=== PATIENT | female | born 1970 | race Caucasian/White ===

== ENCOUNTER 2017-07-10 07:56 | Inpatient (IN) | payer OTHER ==
[2017-06-21 09:56] VITALS: BMI 36.0
--- NOTE | 2017-06-21 10:32 | PAT Medication Instructions ---
Service Date Jun 21, 2017. Current Home Medication List Cyclobenzaprine Hcl (Flexeril), 1 TAB PO TID PRN for Muscle Spasms Ergocalciferol (Vitamin D 82884 Unit), 1 CAP PO 2XWK Escitalopram Oxalate (Lexapro), 5 MG PO QAM Folic Acid (Folvite), 1 TAB PO QAM Glimepiride (Glimepiride), 1 TAB PO DAILY PRN for blood sugar Lactulose (Chronulac), 2 TBS PO QID Metformin Hcl (Glucophage), 1,000 MG PO BID Nadolol (Corgard), 20 MG PO QAM Naproxen (Aleve), 440 MG PO QD PRN for Pain or Fever Pantoprazole (Protonix), 20 MG PO DAILY PRN for acid reflux Rifaximin (Xifaxan), 1 TAB PO BID Spironolactone (Aldactone), 100 MG PO BID Trazodone Hcl (Trazodone), 75 MG PO HS PRN for Sleep Medication Instructions For Your Scheduled Surgery - Check with surgeon for instructions: Naproxen (Aleve), 440 MG PO QD PRN for Pain or Fever - Hold the following medications the morning of surgery: Cyclobenzaprine Hcl (Flexeril), 1 TAB PO TID PRN for Muscle Spasms Ergocalciferol (Vitamin D 36029 Unit), 1 CAP PO 2XWK Folic Acid (Folvite), 1 TAB PO QAM Glimepiride (Glimepiride), 1 TAB PO DAILY PRN for blood sugar Metformin Hcl (Glucophage), 1,000 MG PO BID Spironolactone (Aldactone), 100 MG PO BID - Take the following medications the morning of surgery with a sip of water: Pantoprazole (Protonix), 20 MG PO DAILY PRN for acid reflux (if needed) Lactulose (Chronulac), 2 TBS PO QID Rifaximin (Xifaxan), 1 TAB PO BID Nadolol (Corgard), 20 MG PO QAM Escitalopram Oxalate (Lexapro), 5 MG PO QAM - Take the following medications as scheduled the night before surgery: Trazodone Hcl (Trazodone), 75 MG PO HS PRN for Sleep (if needed) Spironolactone (Aldactone), 100 MG PO BID Pantoprazole (Protonix), 20 MG PO DAILY PRN for acid reflux (if needed) Lactulose (Chronulac), 2 TBS PO QID Rifaximin (Xifaxan), 1 TAB PO BID Glimepiride (Glimepiride), 1 TAB PO DAILY PRN for blood sugar (if needed) Cyclobenzaprine Hcl (Flexeril), 1 TAB PO TID PRN for Muscle Spasms (if needed) If you have any questions please call us at [phone] or [phone] or [phone]
--- NOTE | 2017-06-21 11:27 | DIAGNOSTIC IMAGING REPORT ---
CHEST 2 VIEWS ROUTINE CLINICAL HISTORY: PAT preoperative evaluation COMPARISON STUDY: No previous studies for comparison. FINDINGS: The bones soft tissues and hemidiaphragms are normal. The cardiomediastinal silhouette is normal. The lungs are clear. The pulmonary vasculature is normal. IMPRESSION: Negative chest. The above report was generated using voice recognition software. It may contain grammatical, syntax or spelling errors. Electronically signed by: Terrell Spencer M.D. 06/21/2017 11:25 AM Dictated Date/Time: 06/21/2017 11:25 AM
[2017-06-21 12:27] LABS: BASO % 0.8 %; BASO ABS # 0.05 K/uL (0-0.2); EOS % 3.2 %; HEMATOCRIT 41.7 % (37-47); HEMOGLOBIN 14.8 g/dL (12.0-16.0); IG# 0.01 K/uL (0.00-0.02); LYMPH % 44.4 %; LYMPH ABS # 2.76 K/uL (1.2-3.4); MEAN CELL VOLUME 99.8 fL (80-100); MEAN CORPUSCULAR HEMOGLOBIN 35.4 pg (25-34); MEAN CORPUSCULAR HGB CONC 35.5 g/dl (32-36); MEAN PLATELET VOLUME 10.3 fL (7.4-10.4); MONO % 10.3 %; MONO ABS # 0.64 K/uL (0.11-0.59); NEUT % 41.1 %; NEUT ABS # 2.56 K/uL (1.4-6.5); PLATELET COUNT 144 K/uL (130-400); RED CELL DISTRIBUTION WIDTH CV 13.5 % (11.5-14.5); RED CELL DISTRIBUTION WIDTH SD 48.9 fL (36.4-46.3); WHITE BLOOD COUNT 6.22 K/uL (4.8-10.8)
[2017-06-21 12:37] LABS: CALCIUM 9.6 mg/dl (8.5-10.1); CREATININE 0.47 mg/dl (0.60-1.20); POTASSIUM 3.9 mmol/L (3.5-5.1)
[2017-06-21 12:38] LABS: INR 1.2 (0.9-1.1); PTT PATIENT 27.5 SECONDS (21.0-31.0)
[2017-06-21 12:54] LABS: ALBUMIN 3.6 gm/dl (3.4-5.0); TOTAL PROTEIN 7.2 gm/dl (6.4-8.2)
[2017-06-21 13:04] LABS: HEMOGLOBIN A1C 8.4 % (4.5-5.6)
[2017-07-10] VITALS (10 sets, daily range): BP systolic 114–160; BP diastolic 74–97; PULSE 68–89; TEMP 36.5–36.9; O2SAT 94–97; BMI 37.0
[~2017-07-10] VITALS: Ht 167.6 cm; Wt 104.9 kg
[~2017-07-10 07:56] MED LIST: CYCL10TA6 PO; ERGO500037 PO; ESCI1TAB6 PO; FOLI1TAB8 PO; GLIM2TAB2 PO; LACT10SO17 PO; LACTATED RINGER'S 1000ML 1,000 ML IV SCH; METF-384 PO; NADO20TA PO; NAPR1TAB9 PO; PRT/20 PO; RIFA550T2 PO; SPIR50TA2 PO; TRAZ50TA35 PO
[2017-07-10] MEDS ORDERED: ATROPINE SULFATE 0.1 MG/ML 5ML SYR IV PRN (08:30)
[2017-07-10] MEDS ORDERED: ONDANSETRON INJ 2 MG/ML 2 ML VIAL IV PRN ×2 (08:30→11:30)
[2017-07-10] MEDS ORDERED: EpHEDrine SULFATE INJ 50 MG/ML AMP IV PRN (08:30)
[2017-07-10] MEDS ORDERED: HYDROmorphone INJ 1 MG/ML SYR IV PRN (08:30)
[2017-07-10] MEDS: CEFAZOLIN 2000MG IV PUSH 15 ML IV SCH ×2 (08:45→09:39)
[2017-07-10] MEDS ORDERED: FENTANYL CITRATE INJ 50 MCG/1 ML 2 ML VIAL ONE ×2 (08:59→10:02)
[2017-07-10] MEDS ORDERED: MIDAZOLAM HCL 1 MG/ML 2ML VIAL ONE (08:59)
--- NOTE | 2017-07-10 09:08 | History & Physical Bridge Note ---
H&P Re-Evaluation Bridge Note: I have examined the patient, reviewed the History & Physical and in the interval since the performance of the History & Physical I have noted the following changes of clinical significance: No changes noted
--- NOTE | 2017-07-10 09:09 | History and Physical ---
History & Physical Date Jul 10, 2017. Chief Complaint Back and bilateral leg pain History of Present Illness The patient is a 46 year old female with complaints of back and bilateral leg pain Additional History Hepatic Disease: No Endocrine Disorder: No Kidney Disease: No Hypertension: No Heart Disease: No Bleeding Tendencies: No Infectious Diseases: No Allergies Coded Allergies: No Known Allergies (Unverified , 06/21/17) Home Medications Scheduled Ergocalciferol (Vitamin D 20870 Unit), 1 CAP PO 2XWK Escitalopram Oxalate (Lexapro), 5 MG PO QAM Folic Acid (Folvite), 1 TAB PO QAM Lactulose (Chronulac), 2 TBS PO QID Metformin Hcl (Glucophage), 1,000 MG PO BID Nadolol (Corgard), 20 MG PO QAM Rifaximin (Xifaxan), 1 TAB PO BID Spironolactone (Aldactone), 100 MG PO BID Scheduled PRN Cyclobenzaprine Hcl (Flexeril), 1 TAB PO TID PRN for Muscle Spasms Glimepiride (Glimepiride), 1 TAB PO DAILY PRN for blood sugar Naproxen (Aleve), 440 MG PO QD PRN for Pain or Fever Pantoprazole (Protonix), 20 MG PO DAILY PRN for acid reflux Trazodone Hcl (Trazodone), 75 MG PO HS PRN for Sleep Physical Examination Skin: warm/dry, no rash Eyes: normal inspection, EOMI, sclerae normal ENT: normal ENT inspection, pharynx normal Head: normocephalic, atraumatic Neck: supple, no adenopathy, trachea midline Respiratory/Chest: lungs clear, normal breath sounds, no respiratory distress Cardiovascular: regular rate, rhythm, no edema, no murmur Abdomen / GI: normal bowel sounds, non tender Back: normal inspection Extremities: normal inspection, normal range of motion Neurologic/Psych: no motor/sensory deficits, alert, normal reflexes, oriented x 3 Diagnosis Lumbar spinal stenosis Plan of Treatment Possible L4-5, L5-S1 lumbar decompression and fusion
[2017-07-10] MEDS ORDERED: BUPIVACAINE/EPINEPHRINE 0.5% MPF 1:200,000 30 ML VIAL ONE (09:14)
[2017-07-10] MEDS ORDERED: BACITRACIN 50000 UNIT VIAL ONE (09:14)
[2017-07-10] MEDS ORDERED: HYDROmorphone INJ 2 MG/ML SYR/VIAL ONE ×2 (10:02→11:25)
[2017-07-10] MEDS ORDERED: PROPOFOL IV EMULSION 10 MG/ML 20 ML VIAL IV ONE (10:56)
[2017-07-10] MEDS ORDERED: PHENYLEPHRINE 100MCG/ML 5ML SYR ONE ×2 (10:56→11:26)
[2017-07-10] MEDS ORDERED: LIDOCAINE HCL 2% 2 ML VIAL (20MG/ML) ONE (10:56)
[2017-07-10] MEDS ORDERED: ONDANSETRON INJ 2 MG/ML 2 ML VIAL ONE ×2 (10:56→11:26)
[2017-07-10] MEDS ORDERED: DEXAMETHASONE SOD INJ 4 MG/ML VIAL ONE (10:56)
[2017-07-10] MEDS ORDERED: FLOSEAL HEMOSTATIC MATRIX 10ML TOP ONE (11:16)
[2017-07-10] MEDS ORDERED: SODIUM CHLORIDE 0.9% 1000ML 1,000 ML IV SCH (11:19)
--- NOTE | 2017-07-10 11:19 | [facility] Operative Report ---
Operative Report Operative Date Jul 10, 2017. Pre-Operative Diagnosis Lumbar Spinal Stenosis Post-Operative Diagnosis Same Procedure(s) Performed 1. Lumbar decompression medial facetectomies foraminotomies L4-5 L5-S1. #2 posterior spinal fusion L5-S1. #3 placed posterior instrumentation L5-S1. #4 interbody fusion L5-S1. #5 placement peek cage 11 x 22 mm at L5-S1. #6 placement of locally harvested morselized s allograft in the posterior lateral gutters. #7 placement InFUSE collagen sponge combined master graft in the posterior lateral gutters and ostially up in the interbody space. Surgeon Dr. Tierney Community Affairs Manager Surgeon(s) Naye Mckeon PA-C Estimated Blood Loss 250 Findings Spinal stenosis Specimens none per surgeon Description of Procedure Patient was met with preoperatively case discussed all questions addressed. After informed consent obtained patient was taken to the operative suite underwent intubation and placed in a prone position on the Erick table on top of the Ludwig frame. All bony prominences were well-padded eyes inspected to ensure no external pressure placed upon the. This point the lumbar spine was prepped and draped in normal sterile fashion. Sharp dissection with the assistance of Bovie cautery was performed down to and exposing the lamina and transverse processes of L5 and sacral ala bilaterally. From caudocephalad fashion complete laminectomy of L5 partial laminectomy of L4 was performed addressing significant lateral recess stenosis and foraminal disease. Pedicle screws are then placed in L5 and S1 levels bilaterally with the assistance of fluoroscopy and the appropriately sized shade placed. Through a transforaminal approach on the left can be discectomy at L5-S1 was performed endplates created to subcortical bleeding bone and an 11 x 22 mm peek cage filled with ostial and bone graft tapped in position. Rods were then locked in final position bilaterally. The transverse processes of L5 and the sacral ala burred to subcortical bleeding bone. Infuse collagen sponge master graft and locally harvested morselized Was placed in the posterior gutters. 15 round BUSTER drain inserted. Incision was then closed with 1 Vicryl fascia 2-0 Vicryl subcutaneous and 4-0 Monocryl for final skin closure Steri-Strips sterile dressings placed. Patient will continue PACU stable condition. Please note Naye Man was present throughout the entire procedure involved in patient positioning complex portions of the surgery and fashion closure. I attest to the content of the Intraoperative Record and any orders documented therein. Any exceptions are noted below.
[2017-07-10] MEDS ORDERED: NEOSTIGMINE METHYLSULFATE 1 MG/ML 10ML VIAL ONE (11:26)
[2017-07-10] MEDS ORDERED: GLYCOPYRROLATE INJ 0.2 MG/ML VIAL ONE (11:26)
--- NOTE | 2017-07-10 11:26 | DIAGNOSTIC IMAGING REPORT ---
LUMBAR SPINE 2 OR 3 VIEW CLINICAL HISTORY: L5-S1 decompression. COMPARISON STUDY: No previous studies for comparison. Fluoroscopy time: 17.9 seconds. FINDINGS: 2 fluoroscopic images demonstrate an L5-S1 discectomy with interbody spacer placement. There is a posterior decompression with bilateral pedicle screws at the L5 and S1 levels. There are interconnecting rods. Hardware is intact. IMPRESSION: Fluoroscopic images demonstrating an L5-S1 discectomy and bilateral pedicle screw fusion. Electronically signed by: Keny Kuhn M.D. 07/10/2017 11:25 AM Dictated Date/Time: 07/10/2017 11:24 AM
[2017-07-10] MEDS ORDERED: CYCLOBENZAPRINE HCL 10 MG TAB PO PRN (11:30)
[2017-07-10] MEDS ORDERED: GLIMEPIRIDE 2 MG TAB PO PRN (11:30)
[2017-07-10] MEDS ORDERED: SOD PHOSPHATE/SOD BIPHOSPHATE ENEMA 132 ML BTL PR PRN (11:30)
[2017-07-10] MEDS ORDERED: ALUMINUM/MAGNESIUM SUSP 30 ML UDC PO PRN (11:30)
[2017-07-10] MEDS ORDERED: LORAZEPAM INJ 0.5 MG in SYRINGE 0 ML IV PRN (11:30)
[2017-07-10] MEDS ORDERED: LORAZEPAM 0.5 MG TAB PO PRN (11:30)
[2017-07-10] MEDS ORDERED: BISACODYL 10 MG SUPP PR PRN (11:30)
[2017-07-10] MEDS ORDERED: PROMETHAZINE HCL INJ 12.5 MG in SODIUM CHLORIDE 0.9% 50ML 50 ML IV PRN (11:30)
[2017-07-10] MEDS ORDERED: TRAZODONE HCL 50 MG TAB PO PRN (11:30)
[2017-07-10] MEDS ORDERED: ACETAMINOPHEN IV 100 ML IV PRN (11:30)
[2017-07-10] MEDS ORDERED: DO NOT ADMINISTER FLU VACCINE PRN (11:30)
[2017-07-10] MEDS ORDERED: NALOXONE HCL 0.4 MG/1 ML VIAL/CARP IV PRN ×2 (11:30)
[2017-07-10] MEDS ORDERED: KETOROLAC TROMETHAMINE 30 MG/ML VIAL ONE (11:30)
[2017-07-10] MEDS ORDERED: PANTOprazole SOD 40 MG TAB PO PRN (11:30)
[2017-07-10] MEDS ORDERED: DC PCA PRN (11:30)
[2017-07-10] MEDS ORDERED: hydrOXYzine HCL 25 MG TAB PO PRN (11:30)
[2017-07-10] MEDS ORDERED: MAGNESIUM HYDROXIDE SUSP 30 ML UDC PO PRN (11:30)
[2017-07-10] MEDS ORDERED: DO NOT ADMINISTER PNEUMOCOCCAL VACCINE PRN (11:30)
[2017-07-10] MEDS ORDERED: FAMOTIDINE 20 MG TAB PO PRN (11:30)
[2017-07-10] MEDS ORDERED: ACETAMINOPHEN 500 MG TAB PO PRN (11:30)
[2017-07-10] MEDS ORDERED: METOCLOPRAMIDE HCL INJ 5 MG/ML 2 ML VIAL IV PRN (11:30)
[2017-07-10] MEDS ORDERED: PHARMACY GLYCEMIC MGMT CONSULT PRN (11:46)
[2017-07-10] MEDS ORDERED: GLUCOSE 10 TABS/TUBE PO PRN (12:00)
[2017-07-10] MEDS ORDERED: INSULIN GLARGINE SOLOSTAR 100 UNITS/ML 3 ML PEN SC SCH ×2 (12:00→21:00)
[2017-07-10] MEDS ORDERED: GLUCOSE 40% GEL 15 GM TUBE PO PRN (12:00)
[2017-07-10] MEDS ORDERED: GLUCAGON FOR INJ 1 MG VIAL SQ PRN (12:00)
[2017-07-10] MEDS ORDERED: DEXTROSE 50% 50 ML SYR IV PRN (12:00)
[2017-07-10] MEDS: FENTANYL CITRATE INJ 50 MCG/1 ML 2 ML VIAL IV PRN ×4 (12:02→12:21)
[2017-07-10] MEDS ORDERED: HYDROmorphone HCL 0.5MG/ML 50 ML CASSETTE ONE (12:07)
--- NOTE | 2017-07-10 12:44 | Anesthesiology Progress Note ---
Anesthesia Post Op Note Date & Time Jul 10, 2017 at 12:44 Vital Signs Pain Intensity: 5 Vital Signs Past 12 Hours Date Time Temp Pulse Resp B/P (MAP) Pulse Ox O2 Delivery O2 Flow Rate FiO2 07/10/17 12:40 36.6 67 16 134/98 92 Nasal Cannula 4 07/10/17 12:38 85 12 92 07/10/17 12:38 71 12 07/10/17 12:37 134/98 07/10/17 12:33 73 11 07/10/17 12:33 80 11 92 07/10/17 12:31 140/78 07/10/17 12:28 66 19 07/10/17 12:28 65 19 91 07/10/17 12:26 114/88 07/10/17 12:23 68 12 07/10/17 12:23 67 12 92 07/10/17 12:21 140/94 07/10/17 12:18 69 12 95 07/10/17 12:18 69 14 07/10/17 12:17 134/80 07/10/17 12:13 69 11 07/10/17 12:13 70 11 98 07/10/17 12:11 146/104 07/10/17 12:08 76 13 07/10/17 12:08 76 13 98 07/10/17 12:06 141/89 07/10/17 12:03 81 12 98 07/10/17 12:03 81 12 07/10/17 12:01 146/88 07/10/17 11:58 88 18 97 07/10/17 11:58 88 18 07/10/17 11:57 151/105 07/10/17 11:53 86 19 07/10/17 11:53 86 19 95 07/10/17 11:51 136/88 07/10/17 11:48 88 15 07/10/17 11:48 87 15 95 07/10/17 11:46 148/83 07/10/17 11:45 36.6 84 16 148/83 94 Oxymask 10 07/10/17 08:36 36.9 68 20 160/97 96 Room Air Notes Mental Status: alert / awake / arousable, participated in evaluation Pt Amnestic to Procedure: Yes Nausea / Vomiting: adequately controlled Pain: adequately controlled Airway Patency, RR, SpO2: stable & adequate BP & HR: stable & adequate Hydration State: stable & adequate Anesthetic Complications: no major complications apparent
[2017-07-10] MEDS ORDERED: INSULIN ASPART 100 UNITS/ML 3 ML PEN SC ONE (13:30)
[2017-07-10] MEDS: SODIUM CHLORIDE 0.9% 1000ML 1,000 ML IV SCH ×2 (13:39→21:06)
--- NOTE | 2017-07-10 14:05 | Pharmacy Progress Note ---
Glycemic Control Intl Consult Date of Service Jul 10, 2017. Scope Glycemic Pharmacist consulted by Dr Tierney on 07/10/17 for glycemic control and to write orders per [facility] inpatient glycemic control protocol Objective Weight (Kilograms): 104.900 Accuchecks BSG (last 24hrs): Test 07/10/17 12:21 Bedside Glucose 148 mg/dl (70-90) HbA1c Test 06/21/17 10:55 Hemoglobin A1c 8.4 % (4.5-5.6) H Recent Pertinent Medications Outpatient Anti-diabetic Regimen: * glimepiride 2 mg PO daily PRN blood sugars Risk Factors for Insulin Resistance: * Steroids: dexamethasone 12 mg IV x 1 intraoperatively * Recent Surgery: POD 0 for lumbar surgery * Diet: type 2 diabetic diet Assessment & Plan ASSESSMENT: * Ms Oliver is a 46 y/o F with a PMH of hepatic disease and poorly controlled type 2 diabetes (Elements of Diabetes Care Scoring Scale places patient's goal HbA1C between 6.6-7.5%) who presents with lumbar surgery. The patient's blood sugar after surgery was 148 mg/dL. There was no blood sugar prior to surgery. * The patient received only dexamethasone 12 mg intraoperatively. With continuing steroids, it is reasonable to give full 24 hour weight-based stress of 3 Lantus. However, the patient only received a one time dose of 12 mg of dexamethasone. Therefore, will give between full 24 hours weigh-based stress of 2 and 3. Additional dose is available this evening. * Will start with weight-based stress of 3 Novolog secondary to large dose of steroids used. * Pt is maintained on oral antidiabetic agents as an outpatient * Oral agents are not recommended for inpatient use d/t drug interactions, changing PO intake, and difficulty titrating for acute hyper/hypoglycemia. ADA recommends re-initiating outpatient oral agents 1-2 days prior to discharge if/ when appropriate if they were held on admission. * Will hold oral agents for admission and utilize SQ basal bolus insulin regimen which is the recommended regimen for inpatient glycemic control. * Will initiate weight based insulin dosing for insulin bull patient and titrate based on BSG trends. PLAN FOR INPATIENT GLYCEMIC CONTROL: * Holding outpatient oral diabetes medications * Basal insulin with LANTUS 45 units SQ x 1 then Lantus 0-15 units SQ this evening based upon blood sugars * Correctional Insulin with NOVOLOG per scale ACHS or Q6hrs while NPO * Goal Range: Low 110 mg/dL - High 140 mg/dL * Correction Factor: 15 mg/dL/unit * Nutritional / Prandial insulin per carb ratio of 1 unit per 5 grams CHO consumed * Please note that the plan above was derived based on current level of insulin resistance and hospital stress. These recommendations are appropriate for inpatient admission only. Plan of care upon discharge will need to be reassessed to avoid potential outpatient hypo/hyperglycemia. Thank you.
[2017-07-10] MEDS ORDERED: RXC5 PO (14:15)
--- NOTE | 2017-07-10 14:16 | Discharge Instructions ---
Discharge Instructions Date of Service Jul 10, 2017. Admission Reason for Admission: Spinal Stenosis Discharge Discharge Diagnosis / Problem: lumbar stenosis Discharge Goals Goal(s): Improve function Activity Recommendations Activity Limitations: per Instructions/Follow-up section . Instructions / Follow-Up Instructions / Follow-Up ACTIVITY RECOMMENDATIONS: SELF CARE INSTRUCTIONS AFTER THORACIC/LUMBAR FUSIONS 1. You may walk to your tolerance. It is good exercise for your legs and back. Expect some back and intermittent leg aches and pains. 2. You may perform "counter-top" level activities (make a sandwich, evon with a project, etc.). 3. No bending or lifting of more than 10 pounds or back twisting of any nature (roll like a log when turning in bed). 4. You may ride in a car for 20-30 minutes at a time. No driving until after your first visit with your doctor. 5. Frequent changes of position and restricting sitting to 30 minutes at a time will help limit the amount of back spasms and stiffness you may experience. 6. You may discontinue the use of ambulatory aids (cane, crutches, etc.) once your strength and confidence allow. 7. You may solar system installer the shower and let water strike your incision when you arrive home at least once daily. Do not take a tub bath, sit in a hot tub or go into a swimming pool until after your first recheck in the office. SPECIAL CARE INSTRUCTIONS: VERY IMPORTANT TO READ AND REVIEW A. Your surgical incision has been closed with a cosmetic suture under the skin that will dissolve in about 6 weeks. In 14 days, you can use a pair of clean scissors and cut the suture that is left outside of the skin at the ends of your incision. 1. The small skin tapes can be removed 7 days after surgery if they have not fallen off by that point. 2. You may keep the wound open to air as much as possible to promote healing after post-op day number 5 unless told otherwise by your doctor. 3. If you think the wound looks like it is becoming infected (redness or worsening drainage) and/or you are experiencing fever, chill or worsening back pain and muscle spasms, contact the office so that we may evaluate you as soon as possible. B. Complications are uncommon, but please contact us if you have any signs or symptoms of: 1. wound infection (fever higher than 102.5 degrees F, redness, separation of wound, drainage, or increasing pain from the incision) 2. blood clots in legs (pain, swelling, redness and warmth in legs) 3. urinary tract infection (fever higher than 102.5 degrees F, burning upon urination or increased frequency of urination) 4. nerve problems (inability to walk on your toes or heels, numbness, loss of bowel or bladder control) 5. any other symptoms that concern you C. Please call the office at if you have any concerns or questions about your operation or recovery. D. No smoking! Smoking drastically decreases the chance of a solid fusion. E. Do not take any anti-inflammatory medications (Indocin, Advil, Motrin, Aspirin, Naprosyn, etc.) as these may inhibit the chance of a solid fusion. Tylenol is okay to take for pain. MANAGING PAIN AFTER SPINAL SURGERY 1. Narcotic medication is intended for short-term use and will be provided for surgical pain. Surgical pain usually lasts for a period of 4-6 weeks. Narcotic medication includes Percocet, Vicodin, Darvocet, Tylenol #3 or Lortab. 2. Longer-term pain is more appropriately treated with non-narcotic medication such as Tylenol ES. 3. Muscle spasm is not appropriately treated with narcotics. Muscle relaxers such as Soma, Flexeril or Skelaxin can be used along with Tylenol ES. 4. Remember that we all live with some "aches and pains". This is not unusual or uncommon after an injury or as we get older. a. Back pain is expected and may include muscle spasms for 4 to 6 weeks after surgery. The pain should gradually improve. If the pain worsens for no apparent reason, please contact the office. b. Intermittent leg pain may also be experienced and should not be concerned about unless it worsens for no apparent reason. If so, please contact the office. 5. We will provide appropriate medication within the normal guidelines of their prescribed use. We will also be very cautious and aware of potential abuse and extended duration of patients' medication needs. a. Pain medications are for your comfort and to assist with sleep and rest so that the tissue can heal. They are not provided in order to return to normal activity and should not be used through the day. To do so or worsening pain at night can result from ongoing tissue damage and development of tolerance to the prescribed medicine. 6. Please allow 2-3 days to process refills. Prescriptions will not be mailed but must be picked up at the office. FOLLOW UP VISIT: Keep your scheduled follow-up appointment. Any questions, please call the office at . Current Hospital Diet Patient's current hospital diet: Diabetes Type 2 Diet Discharge Diet Recommended Diet: Regular Diet Procedures Procedures Performed: 1. Lumbar decompression medial facetectomies foraminotomies L4-5 L5-S1. #2 posterior spinal fusion L5-S1. #3 placed posterior instrumentation L5-S1. #4 interbody fusion L5-S1. #5 placement peek cage 11 x 22 mm at L5-S1. #6 placement of locally harvested morselized s allograft in the posterior lateral gutters. #7 placement InFUSE collagen sponge combined master graft in the posterior lateral gutters and ostially up in the interbody space. Pending Studies Studies pending at discharge: no Laboratory Results Hemoglobin A1c Test 06/21/17 10:55 Range/Units Estimated Average Glucose 194 mg/dl Hemoglobin A1c 8.4 H 4.5-5.6 % Medical Emergencies . Who to Call and When: Medical Emergencies: If at any time you feel your situation is an emergency, please call 911 immediately. . Non-Emergent Contact Non-Emergency issues call your: Primary Care Provider . "Provider Documentation" section prepared by Chris Tierney. .
[2017-07-10] MEDS: HYDROmorphone HCL 0.5MG/ML 50 ML CASSETTE IV PRN ×2 (15:03→22:52)
[2017-07-10] MEDS: SPIRONOLACTONE 100 MG TAB PO SCH (17:24)
[2017-07-10] MEDS: LACTULOSE SYRUP 10 GM/15 ML BTL 473 ML PO SCH ×2 (17:24→20:58)
[2017-07-10] MEDS: INSULIN ASPART 100 UNITS/ML 3 ML PEN SC SCH ×2 (18:10→21:11)
[2017-07-10] MEDS: CEFAZOLIN IV 2,000 MG in SYRINGE 0 ML IV SCH (18:14)
[2017-07-10] MEDS: RIFAXIMIN TAB 550 MG TAB PO SCH (20:58)
[2017-07-10] MEDS: DOCUSATE SODIUM/SENNA 50/8.6MG TAB PO SCH (20:58)
[2017-07-11] VITALS (7 sets, daily range): BP systolic 111–153; BP diastolic 67–83; PULSE 69–82; TEMP 36.8–37; O2SAT 90–95; Ht 167.6 cm; Wt 104.9 kg
[2017-07-11] MEDS: CEFAZOLIN IV 2,000 MG in SYRINGE 0 ML IV SCH (02:29)
[2017-07-11] MEDS: SODIUM CHLORIDE 0.9% 1000ML 1,000 ML IV SCH (02:29)
[2017-07-11] MEDS ORDERED: COUGH DROP (SUGAR FREE) LOZ 24 LOZ/1 BOX LOZ ONE (02:31)
[2017-07-11] MEDS ORDERED: NURSING VERBAL MED ORDER ONE (05:15)
[2017-07-11] MEDS ORDERED: HYDROmorphone INJ 0.5 MG/0.5 ML SYR IV PRN (06:00)
[2017-07-11 06:06] LABS: HEMATOCRIT 34.4 % (37-47); HEMOGLOBIN 12.1 g/dL (12.0-16.0); IG# 0.02 K/uL (0.00-0.02); LYMPH ABS # 1.12 K/uL (1.2-3.4); MEAN CELL VOLUME 100.3 fL (80-100); MEAN CORPUSCULAR HEMOGLOBIN 35.3 pg (25-34); MEAN CORPUSCULAR HGB CONC 35.2 g/dl (32-36); MEAN PLATELET VOLUME 10.2 fL (7.4-10.4); MONO ABS # 0.78 K/uL (0.11-0.59); NEUT % 82.8 %; NEUT ABS # 9.27 K/uL (1.4-6.5); PLATELET COUNT 158 K/uL (130-400); RED CELL DISTRIBUTION WIDTH CV 13.6 % (11.5-14.5); RED CELL DISTRIBUTION WIDTH SD 48.9 fL (36.4-46.3); WHITE BLOOD COUNT 11.19 K/uL (4.8-10.8)
--- NOTE | 2017-07-11 06:46 | Clinical Documentation Query ---
CLINICAL DOCUMENTATION QUERY 46-y/o female who has undergone L5-S1 fusion. H&P states no past medical history however patient's home medications tell a different story. In your clinical opinion is this patient being managed for: ( x ) Type 2 DM ( x ) HTN ( ) Anxiety ( ) Depression ( ) Not Agree ( ) Other explanation of clinical findings (Please Explain) ( ) Unable to determine (Please Define) ( ) Need to Discuss The medical record reflects the following clinical findings, treatment, and risk factors. Clinical Indicators: Ergocalciferol (Vitamin D 96515 Unit), 1 CAP PO 2XWK Escitalopram Oxalate (Lexapro), 5 MG PO QAM Folic Acid (Folvite), 1 TAB PO QAM Lactulose (Chronulac), 2 TBS PO QID Metformin Hcl (Glucophage), 1,000 MG PO BID Nadolol (Corgard), 20 MG PO QAM Rifaximin (Xifaxan), 1 TAB PO BID Spironolactone (Aldactone), 100 MG PO BID Treatment: above medication continued while inpatient Risk Factors: Age Please clarify and document your clinical opinion in the progress notes and discharge summary. Terms such as "probable", "suspected", "likely", "questionable", "possible", or "still to be ruled out" are acceptable. IF IN AGREEMENT, YOU MUST DOCUMENT ABOVE DIAGNOSTIC STATEMENT IN DAILY PROGRESS NOTES AND DISCHARGE SUMMARY. This document is not part of the patient's record. Thank You, Kunal Cody, RN [phone]
[2017-07-11 06:56] LABS: CALCIUM 8.3 mg/dl (8.5-10.1); CREATININE 0.71 mg/dl (0.60-1.20); POTASSIUM 5.2 mmol/L (3.5-5.1)
[2017-07-11] MEDS: INSULIN ASPART 100 UNITS/ML 3 ML PEN SC SCH ×4 (08:46→21:00)
[2017-07-11] MEDS: SPIRONOLACTONE 100 MG TAB PO SCH ×2 (08:47→17:02)
[2017-07-11] MEDS: RIFAXIMIN TAB 550 MG TAB PO SCH ×2 (08:47→21:12)
[2017-07-11] MEDS: LACTULOSE SYRUP 10 GM/15 ML BTL 473 ML PO SCH ×4 (08:47→21:13)
[2017-07-11] MEDS: NADOLOL 40 MG TAB PO SCH (08:48)
[2017-07-11] MEDS: ESCITALOPRAM OXALATE 10 MG TAB PO SCH (08:48)
[2017-07-11] MEDS ORDERED: INSULIN GLARGINE SOLOSTAR 100 UNITS/ML 3 ML PEN SC SCH ×3 (09:00→21:00)
[2017-07-11] MEDS: OXYCODONE HCL IR 5 MG TAB (IMMEDIATE RELEASE) PO PRN ×3 (12:19→23:24)
--- NOTE | 2017-07-11 12:19 | Progress Note ---
Progress Note Date of Service Jul 11, 2017. Progress Note Pain is well controlled. She is ambulate in halls without difficulty. Vital signs are stable. BUSTER drain decreasing appropriately. On exam she is sitting in a chair at the bedside is good strength testing appears comfortable. Assessment status post lumbar decompression fusion per plan at this time will continue physical therapy monitor her BUSTER output anticipate possible home tomorrow.
--- NOTE | 2017-07-11 13:48 | Anesthesiology Progress Note ---
Anesthesia Post Op Note Date & Time Jul 11, 2017 at 13:47 Vital Signs Pain Intensity: 7.0 Vital Signs Past 12 Hours Date Time Temp Pulse Resp B/P (MAP) Pulse Ox O2 Delivery O2 Flow Rate FiO2 07/11/17 12:14 36.8 70 16 153/80 (104) 95 Room Air 07/11/17 10:42 95 07/11/17 08:00 90 Room Air 07/11/17 07:08 36.8 80 14 111/77 (88) 90 Room Air 07/11/17 03:10 37.0 82 14 117/67 (84) 93 Nasal Cannula 2.0 Notes Mental Status: alert / awake / arousable, participated in evaluation Pt Amnestic to Procedure: Yes Nausea / Vomiting: adequately controlled Pain: adequately controlled Airway Patency, RR, SpO2: stable & adequate BP & HR: stable & adequate Hydration State: stable & adequate Anesthetic Complications: no major complications apparent
--- NOTE | 2017-07-11 13:53 | Pharmacy Progress Note ---
Pharmacy Glycemic Short Note 2 Date of Service Jul 11, 2017. OUTPATIENT ANTIDIABETIC REGIMEN: * glimepiride 2 mg PO daily PRN blood sugars ASSESSMENT: * Ms Oliver is a 46 y/o F with a PMH of hepatic disease and poorly controlled type 2 diabetes (Elements of Diabetes Care Scoring Scale places patient's goal HbA1C between 6.6-7.5%) who presents with lumbar surgery. The patient received dexamethasone 12 mg intraoperatively. * The patient's blood sugars yesterday were 148 (after surgery)- 229-259 mg/dL. The fasting blood sugar was 290 mg/dL. The patient received 88 units of insulin yesterday with 60 units of basal (more than a full weight-based stress of 3 dose ). For this morning.... gave full weight-based stress of 2 Lantus dose of 35 units. For this evening, will provide scale dose depending on how patient will respond. * For Novolog, weight-based stress of 3 was initially utilized. This appeared ineffective at this point. Tightened carbohydrate ratio slightly to 4. Added an 0200 Accucheck to ensure 24 hour coverage. * Pt is maintained on oral antidiabetic agents as an outpatient * Oral agents are not recommended for inpatient use d/t drug interactions, changing PO intake, and difficulty titrating for acute hyper/hypoglycemia. ADA recommends re-initiating outpatient oral agents 1-2 days prior to discharge if/ when appropriate if they were held on admission. * Restart metformin tomorrow morning with breakfast PLAN FOR INPATIENT GLYCEMIC CONTROL: * metformin 1000 mg PO BID starting tomorrow morning with breakfast * Basal insulin * Lantus 35 units SQ x 1 then 0-18 units tonight depending on blood sugar * Bolus insulin * NovoLog per scale ACHS or Q6hrs while NPO * Goal Range: Low 110 mg/dL - High 140 mg/dL * Correction Factor: 15 mg/dL/unit * Nutritional / Prandial insulin per carb ratio of 1 unit per 4 grams CHO consumed PLAN FOR DISCHARGE: * The patient's HbA1C is not well controlled based upon current recommendations. Recommend utilizing one of the first line agents according to the ADA Approaches to Glycemic Treatment. These include metformin (may utilize extended release formulation for better GI tolerability and start at 500 mg daily with titration upwards), SGLT-2 inhibitors, and injectable agents like Victoza. * Close follow-up with provider is necessary to ensure proper glycemic control.
[2017-07-11] MEDS ORDERED: INSULIN HUMAN REGULAR IV BOLUS 2.5 UNIT in SYRINGE 0 ML IV SCH (16:00)
[2017-07-11] MEDS: INSULIN REGULAR 250 UNITS in SODIUM CHLORIDE 0.9% 250ML 250 ML IV SCH ×7 (16:12→22:27)
[2017-07-11] MEDS: KETOROLAC TROMETHAMINE 30 MG/ML VIAL IV PRN (17:36)
[2017-07-11] MEDS ORDERED: METFORMIN HCL 500 MG TAB PO SCH (17:45)
[2017-07-11] MEDS: DOCUSATE SODIUM/SENNA 50/8.6MG TAB PO SCH (21:13)
[2017-07-12] MEDS ORDERED: NURSING DECISION MEDICATION ORDER SCH (00:45)
[2017-07-12] MEDS ORDERED: INSULIN ASPART 100 UNITS/ML 3 ML PEN SC SCH (02:00)
[2017-07-12] MEDS: OXYCODONE HCL IR 5 MG TAB (IMMEDIATE RELEASE) PO PRN ×3 (03:58→11:49)
[2017-07-12] MEDS: POLYETHYLENE (MIRALAX) 17 GM PACK PO SCH ×2 (05:39→11:37)
[2017-07-12] MEDS ORDERED: NURSING VERBAL MED ORDER ONE (07:15)
[2017-07-12 07:33] VITALS: BP 130/78; PULSE 68; TEMP 36.6; O2SAT 96
[2017-07-12 08:08] VITALS: O2SAT 96
[2017-07-12] MEDS ORDERED: METFORMIN HCL 500 MG TAB PO SCH (08:30)
[2017-07-12] MEDS: INSULIN ASPART 100 UNITS/ML 3 ML PEN SC SCH ×2 (08:51→12:32)
[2017-07-12] MEDS: SPIRONOLACTONE 100 MG TAB PO SCH (09:00)
[2017-07-12] MEDS ORDERED: INSULIN GLARGINE SOLOSTAR 100 UNITS/ML 3 ML PEN SC SCH ×2 (09:00→21:00)
[2017-07-12] MEDS: LACTULOSE SYRUP 10 GM/15 ML BTL 473 ML PO SCH (09:01)
[2017-07-12] MEDS: NADOLOL 40 MG TAB PO SCH (09:02)
[2017-07-12] MEDS: ESCITALOPRAM OXALATE 10 MG TAB PO SCH (09:03)
[2017-07-12] MEDS: RIFAXIMIN TAB 550 MG TAB PO SCH (09:03)
--- NOTE | 2017-07-12 09:08 | Discharge Summary ---
Orthopedic Discharge Summary Admission Date/Reason Jul 10, 2017 at 09:30 Spinal Stenosis. Discharge Date/Disposition Jul 12, 2017 Home Diagnosis Principal Diagnosis: Lumbar spinal stenosis Admission Physical Exam As per Admitting History & Physical. Hospital Course Patient underwent lumbar decompression fusion tolerated this well was taken to the orthopedic floor. Postop day #1 she was up and amatory progressed nicely through postop day #2. BUSTER drain decreased appropriately. Subsequently she was discharged home. Discharge orders and instructions can be found on the chart for further review. Discharge Instructions Please refer to the electronic Patient Visit Report (Discharge Instructions) for additional information.
[2017-07-12] MEDS: KETOROLAC TROMETHAMINE 30 MG/ML VIAL IV PRN (10:32)
[2017-07-12 11:09] VITALS: BP 130/78; PULSE 68; TEMP 36.6; O2SAT 96
[2017-07-12] MEDS ORDERED: INSULIN HUMAN REGULAR PER UNIT 8 UNITS in SYRINGE 7.92 ML IV SCH (12:30)
--- NOTE | 2017-07-12 13:11 | Pharmacy Progress Note ---
Pharmacy Glycemic Short Note 2 Date of Service Jul 12, 2017. OUTPATIENT ANTIDIABETIC REGIMEN: * glimepiride 2 mg PO daily PRN blood sugars ASSESSMENT: * Ms Oliver is a 46 y/o F with a PMH of hepatic disease and poorly controlled type 2 diabetes (Elements of Diabetes Care Scoring Scale places patient's goal HbA1C between 6.6-7.5%) who presents with lumbar surgery. The patient received dexamethasone 12 mg intraoperatively. The patient is POD 2. * Yesterday, the patient's blood sugars were [phone] then started on insulin infusion around 1600. This ran until midnight when the nurses were instructed to hold the infusion. The patient received 121 of SQ insulin (61 units of basal) plus 24 units IV over 8 hours. Fasting this morning was 141 mg/ dL. Estimate total dose of 100 units/day. Therefore start with Lantus 22 units this morning then schedule a scale containing weight-based stress of 2 and 3. * For Novolog, continue weight-based stress of 3. Blood sugar at lunch was 240 mg/dL which was after patient ate. PLAN FOR INPATIENT GLYCEMIC CONTROL: * metformin 1000 mg PO BID * Basal insulin * Lantus 22 units SQ x 1 then 18-26 units tonight depending on blood sugar * Bolus insulin * NovoLog per scale ACHS or Q6hrs while NPO * Goal Range: Low 110 mg/dL - High 140 mg/dL * Correction Factor: 15 mg/dL/unit * Nutritional / Prandial insulin per carb ratio of 1 unit per 5 grams CHO consumed PLAN FOR DISCHARGE: * The patient's HbA1C is not well controlled based upon current recommendations. Recommend utilizing one of the first line agents according to the ADA Approaches to Glycemic Treatment. These include metformin (may utilize extended release formulation for better GI tolerability and start at 500 mg daily with titration upwards), SGLT-2 inhibitors, and injectable agents like Victoza. * Close follow-up with provider is necessary to ensure proper glycemic control.
== END 2017-07-12 12:40 | disposition home or self-care (01) | DRG 455 ==
LOC: C.ACU 07:56 → C.3E 09:30 → ENRESERV 12:18
PROVIDERS: ADMIT Orthopaedic Surgery Orthopaedic Surgery of the Spine; ATTEND Orthopaedic Surgery Orthopaedic Surgery of the Spine
PROC: 01NB0ZZ Release Lumbar Nerve, Open Approach (ICD-10-PCS; principal; 2017-07-10 10:15)
PROC: 0ST40ZZ Resection of Lumbosacral Disc, Open Approach (ICD-10-PCS; principal; 2017-07-10 10:15)
PROC: 0SG30AJ Fusion of Lumbosacral Joint with Interbody Fusion Device, Posterior Approach, Anterior Column, Open Approach (ICD-10-PCS; principal; 2017-07-10 10:15)
PROC: 0SG3071 Fusion of Lumbosacral Joint with Autologous Tissue Substitute, Posterior Approach, Posterior Column, Open Approach (ICD-10-PCS; principal; 2017-07-10 10:15)
DX: M48.061 Spinal stenosis, lumbar region without neurogenic claudication (principal); E11.9 Type 2 diabetes mellitus without complications; Z79.84 Long term (current) use of oral hypoglycemic drugs